=== PATIENT | male | born 1990 | race Hispanic/Latino ===

== ENCOUNTER 2018-03-24 09:45 | Emergency (ER) | payer BC ==
[2018-03-24 10:03] VITALS: TEMP 98
--- NOTE | 2018-03-24 10:30 | ED PDOC ---
Arrival/HPI - General Chief Complaint: Trauma Time Seen by Provider: 03/24/18 10:27 Historian: Patient - History of Present Illness Narrative History of Present Illness (Text): 03/24/18 10:27 This 27 yo male who denies pmh presents to this ED c/o forehead laceration x 4 hours. Patient stated he slipped and fell causing forehead injury. Patient denies LOC, AMADO, n/v, dizziness, dysarthria, diplopia, or abnormal gait. Time/Duration: Other (see hpi) Context: Home Past Medical History - Provider Review Nursing Documentation Reviewed: Yes - Psychiatric Hx Substance Use: No Family/Social History - Physician Review Nursing Documentation Reviewed: Yes Family/Social History: Other (noncontributory) Smoking Status: Never Smoked Hx Alcohol Use: Yes Frequency of alcohol use: Socially Hx Substance Use: No Allergies/Home Meds Allergies/Adverse Reactions: Allergies No Known Allergies Allergy (Verified 03/24/18 09:56) Review of Systems - Review of Systems Constitutional: Normal. absent: Fatigue, Weight Change, Fevers, Night Sweats Eyes: Normal ENT: Normal Respiratory: Normal Cardiovascular: Normal Gastrointestinal: Normal Genitourinary Male: Normal Musculoskeletal: Normal Skin: Laceration (see hpi) Neurological: Normal Endocrine: Normal Hemo/Lymphatic: Normal Psychiatric: Normal Physical Exam Vital Signs Temp Pulse Resp BP Pulse Ox 03/24/18 09:56 98 F 88 17 114/64 95 Temperature: Afebrile Blood Pressure: Normal Pulse: Regular Respiratory Rate: Normal Appearance: Positive for: Well-Appearing, Non-Toxic, Comfortable Pain Distress: None Mental Status: Positive for: Alert and Oriented X 3 - Systems Exam Head: Present: Normocephalic, Laceration (Vertical forhead laceration, aprox. 4 cm), Other (No raccon sign. no Hardy sign) Pupils: Present: PERRL, Other (no hyphema) Extroacular Muscles: Present: EOMI. No: Entrapment Conjunctiva: Present: Normal Ears: Present: Normal, NORMAL TM, Normal Canal. No: Erythema, TM Bulging, Fluid Mouth: Present: Moist Mucous Membranes Pharnyx: Present: Normal. No: ERYTHEMA, EXUDATE, TONSILS ENLARGED Nose (External): Present: Atraumatic. No: Contusion Nose (Internal): Present: Normal Inspection. No: Epistaxis Neck: Present: Normal Range of Motion. No: Meningeal Signs Upper Extremity: Present: Normal Inspection, Normal ROM, NORMAL PULSES Lower Extremity: Present: Normal Inspection, NORMAL PULSES, Normal ROM Neurological: Present: GCS=15, CN II-XII Intact, Speech Normal, Motor Func Grossly Intact, Normal Sensory Function, Normal Cerebellar Funct, Gait Normal, Memory Normal Skin: Present: Warm, Dry, Normal Color. No: Rashes Psychiatric: Present: Alert, Oriented x 3, Normal Insight, Normal Concentration Medical Decision Making ED Course and Treatment: 03/24/18 11:07 Re-evaluation. Patient feels better. Discussed results and plan with patient who expresses understanding. All questions answered and there is agreement with the plan to discharge home with instructions. Patient stable for discharge. Return if symptoms persist or worsen. Patient was recommended to return to ED if he develops AMADO, dizziness, n/v, or abnormal gait. He agreed with plan. Re-evaluation Time: 11:08 Reassessment Condition: Re-examined, Improved - Medication Orders Current Medication Orders: Discontinued Medications Cephalexin Monohydrate (Keflex) 500 mg PO STAT STA PRN Reason: Protocol Stop: 03/24/18 10:43 Last Admin: 03/24/18 10:53 Dose: 500 mg Tetanus/Reduced Diphtheria/Acell Pertussis (Boostrix Vaccine Inj) 0.5 ml IM .ONCE ONE Stop: 03/24/18 10:42 Last Admin: 03/24/18 10:53 Dose: 0.5 ml Immunization Registry Document 03/24/18 10:53 EQ (Rec: 03/24/18 10:53 EQ [facility] [id number]) Immunization Registry Consent Date 03/24/18 - Procedure PROCEDURE NOTE (Text): 03/24/18 11:11 PROCEDURE: LACERATION REPAIR Performed by the emergency provider Location: forehead Length: 4 cm Description: clean wound edges, no foreign bodies Distal CMS: Normal. No deficits. Neurovascularly intact. Anesthesia: Lidocaine 1% Preparation: The wound was cleaned with NS and [place]. The area was prepped and draped in the usual sterile fashion. Exploration: The wound was explored and no foreign bodies were found. Procedure: The wound was closed with Vycril 6-0, interrupted, single layer. There was good approximation. In total, 3 sutures were used. Post-Procedure: Good closure and hemostasis. The patient tolerated the procedure well and there were no complications. CSM remains intact. Post procedure dressing applied. Disposition/Present on Arrival - Present on Arrival Any Indicators Present on Arrival: No History of DVT/PE: No History of Uncontrolled Diabetes: No Urinary Catheter: No History of Decub. Ulcer: No History Surgical Site Infection Following: None - Disposition Have Diagnosis and Disposition been Completed?: Yes Diagnosis: Facial laceration Disposition: HOME/ ROUTINE Disposition Time: 11:15 Patient Plan: Discharge Condition: GOOD Discharge Instructions (ExitCare): Laceration Repair With Stitches (DC), Laceration Repair With Glue (DC) Additional Instructions: Call private doctor for follow up visit in 1-2 for wound check. Keep wound clean and dry for 2 days, then clean wound with soap and water daily. Return to emergency if you develop headaches, nausea, vomiting, dizziness, or new symptoms. Prescriptions: Cephalexin [cephalexin] 500 mg PO QID #20 cap Referrals: Adia Acevedo MD [Primary Care Provider] - Follow up with primary Forms: [employer] ([place])
[2018-03-24] MEDS ORDERED: Lidocaine 1% Inj (20ml) ONE (10:39)
[2018-03-24] MEDS ORDERED: TDAP Vaccine 0.5 mL Syr IM ONE (10:41)
[2018-03-24 11:40] VITALS: BP 115/66; PULSE 71; RESP 18; O2SAT 100
== END 2018-03-24 11:15 | disposition home or self-care (01) ==
LOC: ED 09:45
DX: S01.81XA Laceration without foreign body of other part of head, initial encounter (principal); W01.0XXA Fall on same level from slipping, tripping and stumbling without subsequent striking against object, initial encounter; Z23 Encounter for immunization